=== PATIENT | female | born 1995 | race Caucasian/White ===

== ENCOUNTER 2018-04-11 04:33 | Inpatient (IN) | payer OTHER ==
--- NOTE | 2018-04-11 04:39 | EDPHY ---
H & P Stated Complaint: ETOH withdrawal, n/v, last drink 12hrs ago, hx Time Seen by Provider: 04/11/18 04:39 HPI/ROS: HPI CHIEF COMPLAINT: Alcohol withdraw, nausea, vomiting HISTORY OF PRESENT ILLNESS: 22-year-old female very pleasant, going through alcohol withdrawal. Patient states that she typically drinks 3 L of wine per day. She has done so for the past 3 months. She stopped abruptly yesterday. She now presents emergency room with nausea, vomiting, shakiness, tremors, and tachycardia. Denies any hallucinations. Denies chest pain shortness of breath. She does report she has been vomiting continuously. Past Medical History: Alcoholism Past Surgical History: Gallbladder removal Social History: Daily alcohol use. Typically wine. Family History: Noncontributory ROS REVIEW OF SYSTEMS: 10 Systems were reviewed and negative with the exception of the elements mentioned in the history of present illness. Exam Constitutional triage nursing summary reviewed, vital signs reviewed, awake/ alert. Tachycardic, tremulous Eyes normal conjunctivae and sclera, EOMI, PERRLA. HENT normal inspection, atraumatic, moist mucus membranes, no epistaxis, neck supple/ no meningismus, no raccoon eyes. Respiratory clear to auscultation bilaterally, normal breath sounds, no respiratory distress, no wheezing. Cardiovascular tachycardia, regular rhythm, no murmur, no edema, distal pulses normal. Gastrointestinal soft, non-tender, no rebound, no guarding, normal bowel sounds, no distension, no pulsatile mass. Genitourinary no CVA tenderness. Musculoskeletal no midline vertebral tenderness, full range of motion, no calf swelling, no tenderness of extremities, no meningismus, good pulses, neurovascularly intact. Skin pink, warm, & dry, no rash, skin atraumatic. Neurologic awake, alert and oriented x 3, AAOx3, moves all 4 extremities equally, motor intact, sensory intact, CN II-XII intact, normal cerebellar, normal vision, normal speech. Psychiatric appears anxious, shaking. Heme/Lymph/Immune no lymphadenopathy. Differential Diagnosis: Includes but is not limited to in a particular order alcohol draw, dehydration, electrolyte disturbance, vitamin deficiency, delirium tremens Medical Decision Making: Plan for this patient IV establishment with IV fluid bolus Zofran nausea thiamine and folate, IV Ativan, basic blood work including magnesium, electrolytes, LFTs. Re-evaluate Re-evaluation: 0557: Patient here was significant alcohol withdrawal. She is not hallucinating however it is noted at this time after 4 mg IV Ativan she is still anxious, tachycardic. Having nausea vomiting. The patient is too ill to go home for alcohol draw she will need to be admitted to the hospital. She is on CIWA. She did score initial 22. Plan for hospital admission for alcohol draw. Dehydration, nausea vomiting. Critical Care: Total Critical Care Time Spent Managing this Patient: 65 Minutes. This time was spent Exclusively with this patient. This Care was exclusive of procedures. The Organ System/life at risk was neurological, cardiac This Patient was in Critical Condition because Alcohol withdrawl. Source: Patient - Personal History LMP (Females 10-55): 22-28 Days Ago Current Tetanus Diphtheria and Acellular Pertussis (TDAP): Yes - Medical/Surgical History Hx Asthma: No Hx Chronic Respiratory Disease: No Hx Diabetes: No Hx Cardiac Disease: No Hx Renal Disease: No Hx Cirrhosis: No Hx Alcoholism: Yes Hx HIV/AIDS: No Hx Splenectomy or Spleen Trauma: No Other PMH: JESSE 2011, HAS HAD SEVERE NAUSEA SINCE THAT TIME, HAS HAD UGI,US. ETOH abuse - Social History Smoking Status: Never smoked Constitutional: Initial Vital Signs Temperature (C) 36.7 C 04/11/18 04:34 Heart Rate 116 H 04/11/18 04:34 Respiratory Rate 20 04/11/18 04:34 Blood Pressure 132/101 H 04/11/18 04:34 O2 Sat (%) 96 04/11/18 04:34 O2 Delivery Mode Room Air Allergies/Adverse Reactions: No Known Allergies Allergy (Verified 04/11/18 04:34) Home Medications: Medication Instructions Recorded Escitalopram Oxalate [Lexapro] 20 mg PO HS 04/11/18 Medical Decision Making - Data Points Laboratory Results: Laboratory Results 04/11/18 04:55 04/11/18 04:55 Medications Given: Escitalopram Oxalate (Lexapro) 20 mg PO HS MALA Stop: 10/08/18 20:59 Last Admin: 04/11/18 19:42 Dose: 20 mg Folic Acid (Folic Acid) 1 mg PO DAILY MALA Stop: 10/08/18 08:59 Last Admin: 04/11/18 09:48 Dose: 1 mg Potassium Chloride/Dextrose/Sod Cl (D5w 1/2 Ns W/ 20 Kcl/L) 1,000 mls @ 100 mls /hr IV CONT MALA Stop: 10/08/18 06:14 Last Admin: 04/11/18 18:02 Dose: 1,000 mls Loperamide HCl ( Imodium) 2 mg PO Q6HRS PRN PRN Reason: Diarrhea/Loose Stools Stop: 10/08/18 13:14 Last Admin: 04/11/18 13:46 Dose: 2 mg Lorazepam (Ativan Injection) 0 mg IVP Q1H PRN; Protocol PRN Reason: Alcohol Withdrawal w/IV access Stop: 10/08/18 06:06 Last Admin: 04/11/18 22:38 Dose: 2 mg Multivitamins (Tab-A-Vandana) 1 each PO DAILY MALA Stop: 10/08/18 08:59 Last Admin: 04/11/18 09:48 Dose: 1 each Ondansetron HCl (Zofran) 4 mg IVP Q4HRS PRN PRN Reason: Nausea/Vomiting, Can't Take PO Stop: 10/08/18 06:04 Last Admin: 04/11/18 14:23 Dose: 4 mg Ondansetron HCl (Zofran Odt) 4 mg PO Q4HRS PRN PRN Reason: Nausea/Vomiting, Use 1st Stop: 10/08/18 06:04 Last Admin: 04/11/18 09:58 Dose: 4 mg Promethazine HCl (Phenergan) 6.25 - 12.5 mg IVP Q6HRS PRN PRN Reason: Nausea/Vomiting, Use 2nd Stop: 10/08/18 06:04 Last Admin: 04/11/18 19:40 Dose: 12.5 mg Throat Lozenges (Cepacol Lozenge) 1 ea PO PRN PRN PRN Reason: Sore Throat Stop: 10/08/18 13:04 Last Admin: 04/11/18 13:46 Dose: 1 ea Discontinued Medications Chlordiazepoxide HCl (Librium) 25 mg PO ONCE ONE Stop: 04/11/18 13:51 Last Admin: 04/11/18 15:37 Dose: 25 mg Folic Acid (Folic Acid) 1 mg PO EDNOW ONE Stop: 04/11/18 04:45 Last Admin: 04/11/18 04:56 Dose: 1 mg Sodium Chloride (Ns) 1,000 mls @ 0 mls/hr IV EDNOW ONE; Wide Open PRN Reason: Protocol Stop: 04/11/18 04:45 Last Admin: 04/11/18 04:56 Dose: 1,000 mls Sodium Chloride (Ns) 1,000 mls @ 0 mls/hr IV EDNOW ONE; Wide Open PRN Reason: Protocol Stop: 04/11/18 04:45 Last Admin: 04/11/18 04:56 Dose: 1,000 mls Thiamine HCl 500 mg/ Sodium (Chloride) 105 mls @ 210 mls/hr IV ONCE ONE Stop: 04/11/18 05:13 Last Admin: 04/11/18 05:43 Dose: 105 mls Sodium Chloride (Ns) 1,000 mls @ 0 mls/hr IV ONCE ONE PRN Reason: Wide Open Stop: 04/11/18 06:06 Last Admin: 04/11/18 06:34 Dose: 1,000 mls Lorazepam (Ativan Injection) 2 mg IVP EDNOW ONE Stop: 04/11/18 04:45 Last Admin: 04/11/18 04:50 Dose: 2 mg Lorazepam (Ativan Injection) 0 mg IVP Q1H PRN; Protocol PRN Reason: Alcohol Withdrawal w/IV access Stop: 04/11/18 16:45 Last Admin: 04/11/18 07:58 Dose: 2 mg Ondansetron HCl (Zofran) 4 mg IVP EDNOW ONE Stop: 04/11/18 04:45 Last Admin: 04/11/18 04:55 Dose: 4 mg Departure - Departure Disposition: [facility] Acute Clinical Impression: Alcohol withdrawal Qualifiers: Complication of substance-induced condition: uncomplicated Qualified Code(s): F10.230 - Alcohol dependence with withdrawal, uncomplicated Condition: Critical
[2018-04-11] MEDS ORDERED: NS 1,000 ML IV ONE ×3 (04:44→06:05)
[2018-04-11] MEDS ORDERED: LORazepam 2 MG/ML INJ IVP ONE (04:44)
[2018-04-11] MEDS ORDERED: THIAMINE HCL 500 MG in NS 100 ML IV ONE (04:44)
[2018-04-11] MEDS ORDERED: FOLIC ACID 1 MG TAB PO ONE (04:44)
[2018-04-11] MEDS ORDERED: ONDANSETRON 4 MG/2 ML VIAL IVP ONE (04:44)
[2018-04-11] MEDS ORDERED: LORazepam 1 MG TAB PO PRN (04:45)
[2018-04-11 05:02] LABS: PLATELET COUNT 309 10^3/uL (150-400)
[2018-04-11] MEDS: LORazepam 2 MG/ML INJ IVP PRN ×11 (05:18→22:38)
[2018-04-11] MEDS ORDERED: FLUMAZENIL 0.5 MG/5 ML MDV IVP PRN (06:07)
--- NOTE | 2018-04-11 06:23 | PDGENHP ---
History and Physical - Chief Complaint Alcohol withdrawal - History of Present Illness 22 yo F w/ ETOH use d/o presents with ETOH w/d. The patient has been drinking daily for about a year. She attended a rehab program 1 year ago but only maintained sobriety for about 2 weeks after that. Over the last 3 months her consumption has risen to about 3 L of wine daily. Her last drink was 4 PM on day prior to admission. She wishes to stop drinking so that she can enter another rehab program. She presented to the ED in severe withdrawal with CIWA scores in the 20s. She feels improved currently after 6 mg of Ativan IV but remains tachycardic. She had profuse vomiting prior to arrival. She denies infectious ROS. Case discussed with ED physician Dr. Calle; records reviewed in EMR. History Information - Allergies/Home Medication List Allergies/Adverse Reactions: No Known Allergies Allergy (Verified 04/11/18 04:34) Home Medications: Bcp 04/27/11 [Last Taken 04/27/11] Lamotrigine 09/03/17 [Last Taken Unknown] Ondansetron Odt [Zofran Odt] 09/03/17 [Last Taken Unknown] I have personally reviewed and updated: family history, medical history - Past Medical History no pertinent PMH - Surgical History Reports: no pertinent surgical hx - Family History Positive for: cancer Additional family history: Mother struggles with subtance abuse - Social History Smoking Status: Never smoked Alcohol Use: Heavy (3 L wine daily) Review of Systems Review of Systems: ROS: 10pt was reviewed & negative except for what was stated in HPI & below Physical Exam Physical Exam: Temp Pulse Resp BP Pulse Ox 36.7 C 117 H 20 116/50 L 96 04/11/18 04:34 04/11/18 06:00 04/11/18 06:00 04/11/18 06:00 04/11/18 06:00 Constitutional: appears nourished, uncomfortable Eyes: PERRL, EOMI Ears, Nose, Mouth, Throat: moist mucous membranes, no oral mucosal ulcers Cardiovascular: no murmur, rub, or gallop, tachycardia Respiratory: no respiratory distress, no rales or rhonchi Gastrointestinal: normoactive bowel sounds, soft, non-tender abdomen Skin: warm, normal color Musculoskeletal: full muscle strength, no muscle tenderness Neurologic: AAOx3, CN II-XII Intact, other (+UE tremor, + tongue fasciculations) Psychiatric: interacting appropriately, not anxious Lab Data & Imaging Review 04/11/18 04:55 04/11/18 04:55 WBC 13.48 10^3/uL (3.80-9.50) H 04/11/18 04:55 RBC 4.02 10^6/uL (4.18-5.33) L 04/11/18 04:55 Hgb 14.3 g/dL (12.6-16.3) 04/11/18 04:55 Hct 40.7 % (38.0-47.0) 04/11/18 04:55 MCV 101.2 fL (81.5-99.8) H 04/11/18 04:55 MCH 35.6 pg (27.9-34.1) H 04/11/18 04:55 MCHC 35.1 g/dL (32.4-36.7) 04/11/18 04:55 RDW 13.8 % (11.5-15.2) 04/11/18 04:55 Plt Count 309 10^3/uL (150-400) 04/11/18 04:55 MPV 9.5 fL (8.7-11.7) 04/11/18 04:55 Neut % (Auto) 80.2 % (39.3-74.2) H 04/11/18 04:55 Lymph % (Auto) 13.1 % (15.0-45.0) L 04/11/18 04:55 Baker % (Auto) 6.2 % (4.5-13.0) 04/11/18 04:55 Eos % (Auto) 0.0 % (0.6-7.6) L 04/11/18 04:55 Baso % (Auto) 0.2 % (0.3-1.7) L 04/11/18 04:55 Nucleat RBC Rel Count 0.0 % (0.0-0.2) 04/11/18 04:55 Absolute Neuts (auto) 10.81 10^3/uL (1.70-6.50) H 04/11/18 04:55 Absolute Lymphs (auto) 1.77 10^3/uL (1.00-3.00) 04/11/18 04:55 Absolute Monos (auto) 0.83 10^3/uL (0.30-0.80) H 04/11/18 04:55 Absolute Eos (auto) 0.00 10^3/uL (0.03-0.40) L 04/11/18 04:55 Absolute Basos (auto) 0.03 10^3/uL (0.02-0.10) 04/11/18 04:55 Absolute Nucleated RBC 0.00 10^3/uL (0-0.01) 04/11/18 04:55 Immature Gran % 0.3 % (0.0-1.1) 04/11/18 04:55 Immature Gran # 0.04 10^3/uL (0.00-0.10) 04/11/18 04:55 Sodium 142 mEq/L (135-145) 04/11/18 04:55 Potassium 4.2 mEq/L (3.3-5.0) 04/11/18 04:55 Chloride 100 mEq/L (97-110) 04/11/18 04:55 Carbon Dioxide 15 mEq/l (22-31) L 04/11/18 04:55 Anion Gap 27 mEq/L (6-14) H 04/11/18 04:55 BUN 6 mg/dL (7-23) L 04/11/18 04:55 Creatinine 0.7 mg/dL (0.6-1.0) 04/11/18 04:55 Estimated GFR > 60 04/11/18 04:55 Glucose 135 mg/dL (70-100) H 04/11/18 04:55 Calcium 11.1 mg/dL (8.5-10.4) H 04/11/18 04:55 Phosphorus 3.0 mg/dL (2.5-4.5) 04/11/18 04:55 Magnesium 1.8 mg/dL (1.6-2.3) 04/11/18 04:55 Total Bilirubin 0.8 mg/dL (0.1-1.4) 04/11/18 04:55 Conjugated Bilirubin 0.5 mg/dL (0.0-0.5) 04/11/18 04:55 Unconjugated Bilirubin 0.3 mg/dL (0.0-1.1) 04/11/18 04:55 AST 143 IU/L (14-46) H 04/11/18 04:55 ALT 99 IU/L (9-52) H 04/11/18 04:55 Alkaline Phosphatase 156 IU/L (38-126) H 04/11/18 04:55 Total Protein 9.8 g/dL (6.3-8.2) H 04/11/18 04:55 Albumin 5.9 g/dL (3.5-5.0) H 04/11/18 04:55 Lipase 52 IU/L (23-300) 04/11/18 04:55 Beta HCG, Qual NEGATIVE 04/11/18 04:55 Ethyl Alcohol < 10 mg/dL (0-10) 04/11/18 04:55 Assessment & Plan Assessment: 22 yo F w/ ETOH use d/o presents with ETOH w/d. Plan: 1. ETOH use d/o w/ acute withdrawal - Presents with CIWA scores >20; desires to quit drinking so she can attend rehab program. She drinks 3 L of wine daily; last drink 4 PM on day prior to admission. She feels improved after 6 mg of IV Ativan thus far but remains tachycardic. - Admit to SDU for close monitoring - CIWA protocol ordered - Continue mIVF - Daily MVI, folate, thiamine - CM consult 2. Transaminitis - 2/2 heavy ETOH use. Diet - Regular Code - Full Ppx - Low risk, ambulate TID Dispo - Admit under observation status
[2018-04-11] MEDS: FOLIC ACID 1 MG TAB PO SCH (09:48)
[2018-04-11] MEDS: MULTIVITAMINS 1 EACH TAB PO SCH (09:48)
[2018-04-11] MEDS: ONDANSETRON DISINTEGRATING 4 MG TAB PO PRN (09:58)
[2018-04-11] MEDS ORDERED: CEPACOL LOZENGE PO PRN (13:05)
[2018-04-11] MEDS: LOPERAMIDE HCL 2 MG CAP PO PRN (13:46)
[2018-04-11] MEDS ORDERED: chlordiazePOXIDE 25 MG CAP PO ONE (13:50)
[2018-04-11] MEDS: ONDANSETRON 4 MG/2 ML VIAL IVP PRN (14:23)
[2018-04-11] MEDS: D5W 1/2 NS W/ 20 KCl/L 1,000 ML IV SCH (18:02)
[2018-04-11] MEDS: PROMETHAZINE HCL 25 MG/ML INJ IVP PRN (19:40)
[2018-04-11] MEDS: ESCITALOPRAM OXALATE 10 MG TAB PO SCH (19:42)
[2018-04-12] MEDS: PROMETHAZINE HCL 25 MG/ML INJ IVP PRN (03:10)
[2018-04-12] MEDS: LORazepam 2 MG/ML INJ IVP PRN ×6 (03:10→20:15)
[2018-04-12] MEDS: D5W 1/2 NS W/ 20 KCl/L 1,000 ML IV SCH ×2 (03:56→15:39)
[2018-04-12] MEDS: THIAMINE HCL 100 MG TAB PO SCH (08:07)
[2018-04-12] MEDS: MULTIVITAMINS 1 EACH TAB PO SCH (08:07)
[2018-04-12] MEDS: FOLIC ACID 1 MG TAB PO SCH (08:08)
--- NOTE | 2018-04-12 09:16 | HOSPPROG ---
Hospitalist Progress Note Assessment/Plan: # etOH abuse and withdrawal; MCV 101 - looks well now but has received 20mg ativan in 24 hours - cont SDU monitoring and CIWA today - plans to go to rehab next week # transaminitis - d/t etOH - recheck tomorrow # throat pain - possibly from emesis - will follow PO intake # AGMA - recheck today Subjective: feels about 50% better; c/o throat pain Objective: Vital Signs Temp Pulse Resp BP Pulse Ox 36.7 C 84 19 104/55 L 97 04/12/18 00:00 04/12/18 07:00 04/12/18 07:00 04/12/18 07:00 04/12/18 07:00 04/11/18 04/12/18 04/13/18 05:59 05:59 05:59 Intake Total 3971 Balance 3971 high risk on high dose ativan - Physical Exam Constitutional: no apparent distress, appears nourished Cardiovascular: regular rate and rhythym, no murmur, rub, or gallop Respiratory: no respiratory distress, no rales or rhonchi, clear to auscultation Gastrointestinal: soft, non-tender abdomen, No guarding, No rebound, No distension ICD10 Worksheet Patient Problems: Problems Problem Status Onset Alcohol withdrawal Acute
--- NOTE | 2018-04-12 09:22 | ASMTCASEMG ---
Living Arrangements What is your living Answers: WIth Both Parents/1 Home arrangement? Who do you live with? Type Of Residence What kind of residence do Answers: House you live in? Discharge Plan Comments Coordination Status Comments Notes: Patient is a 22yo single female who has been drinking ETOH daily for the past year. She attended a rehab program approximately 1 year ago but only maintained her sobriety for about 2 weeks. Patient reports her consumption has risen to 3L of wine per day and she wishes to stop drinking. She presented to the ED in severe withdrawal. Patient has been admitted for ETOH acute withdrawal and transaminitis. Patient will most likely need a CAGE and some resources when she is able to participate. CM will follow. Date Signed: 04/12/2018 09:21 AM Electronically Signed By:Traci Delacruz LCSW
[2018-04-12 10:39] LABS: PLATELET COUNT 199 10^3/uL (150-400)
--- NOTE | 2018-04-12 13:10 | PDMN ---
Medical Necessity Medical necessity: [facility] M595 substance related disorders: 2 days: pt present with ETOH W/D CIWA > 20, drinks 3L wine/daily X 1 yr., also with transaminitis, status changed to INPT 04/12 for ongoing monitoring/ further tx CIWA protocol, IVF, IV antiemetics, IV ativan
[2018-04-12] MEDS: ACETAMINOPHEN 325 MG TAB PO PRN (15:42)
[2018-04-12] MEDS: ESCITALOPRAM OXALATE 10 MG TAB PO SCH (20:15)
[2018-04-12] MEDS: LOPERAMIDE HCL 2 MG CAP PO PRN (20:15)
[2018-04-12] MEDS ORDERED: MELATONIN 3 MG TAB PO SCH (21:00)
[2018-04-13] MEDS: LORazepam 2 MG/ML INJ IVP PRN ×4 (00:01→08:30)
[2018-04-13] MEDS: PROMETHAZINE HCL 25 MG/ML INJ IVP PRN (00:02)
[2018-04-13] MEDS: ONDANSETRON 4 MG/2 ML VIAL IVP PRN (04:19)
[2018-04-13] MEDS: D5W 1/2 NS W/ 20 KCl/L 1,000 ML IV SCH (05:06)
[2018-04-13] MEDS: MULTIVITAMINS 1 EACH TAB PO SCH (08:29)
[2018-04-13] MEDS: FOLIC ACID 1 MG TAB PO SCH (08:29)
[2018-04-13] MEDS: THIAMINE HCL 100 MG TAB PO SCH (08:29)
[2018-04-13] MEDS: ACETAMINOPHEN 325 MG TAB PO PRN (08:37)
[2018-04-13] MEDS: ONDANSETRON DISINTEGRATING 4 MG TAB PO PRN (12:00)
[2018-04-13 15:14] VITALS: BP 132/86
--- NOTE | 2018-04-13 15:19 | GDS ---
DISCHARGE DIAGNOSES: 1. Acute alcohol withdrawal. 2. Mild transaminitis. HOSPITAL COURSE: This is a 22-year-old female, who presented to the emergency department in alcohol withdrawal. She had been drinking about 3 L of wine a day for the last year. She received a signifi cant amount of intravenous Ativan with significant improvement in her symptoms over the next 2 days. She still has some mild evidence of withdrawal on discharge. I will give her additional Ativan, #5, in case she feels shaky. She is going to be around her mom and her dad who will be able to watch ov er her for the next 1-2 days. Her plan after this is to go to inpatient rehab. I have also written her a note to excuse her from work until next . BILLING: I spent more than 30 minutes on the day of discharge coordinating care. /[id number]/MODL
--- NOTE | 2018-04-13 16:17 | ASDISCHSUM ---
Discharge Information Plan Status:Home with No Needs Medically Cleared to Leave:04/13/2018 Discharge Date:04/13/2018 03:30 PM CM D/C Disposition:Home, Routine, Self-Care ADT D/C Disposition:Home, Routine, Self-Care Projected Discharge Date:04/13/2018 03:30 PM Transportation at D/C:Family Discharge Delay Reason: Follow-Up Date:04/13/2018 03:30 PM Discharge Slot: Final Diagnosis: Placement Information Patient Contact Information Contact Name:CLEVELAND Relationship:Mother Address:[address] [place] Phone: State/Zip Code:[place] [address] Email: Financial Information Financial Class:HMO and PPO Plans Primary Plan Desc:Arte Manifiesto [employer]TIZ Primary Plan Number:[id number] Secondary Plan Desc: Secondary Plan Number: Assessment Information LACE LACE Length of stay for Answers: 1 day current admission Acuity / Level of Answers: Yes Care: Did the patient have an inpatient admission? # of Emergency department Answers: 1-2 visits in the last 6 months Social determinants Answers: History of substance abuse (ETOH, street drugs, prescription drugs, etc.) Score: 8 Date Signed: 04/13/2018 04:16 PM Electronically Signed By:ESTELLE Serrano [facility] Initial CM Assessment Living Arrangements What is your living Answers: WIth Both Parents/1 Home arrangement? Who do you live with? Type Of Residence What kind of residence do Answers: House you live in? Discharge Plan Comments Coordination Status Comments Notes: Patient is a 22yo single female who has been drinking ETOH daily for the past year. She attended a rehab program approximately 1 year ago but only maintained her sobriety for about 2 weeks. Patient reports her consumption has risen to 3L of wine per day and she wishes to stop drinking. She presented to the ED in severe withdrawal. Patient has been admitted for ETOH acute withdrawal and transaminitis. Patient will most likely need a CAGE and some resources when she is able to participate. CM will follow. Date Signed: 04/12/2018 09:21 AM Electronically Signed By:Traci Delacruz LCSW Case Management Discharge Plan Note Case Management Discharge Discharge Order Complete? Answers: Yes Patient to Obtain Answers: Independently Medications Transportation Arranged Answers: Family/Friends Discharge Comments Notes: Pt is discharging home today. Discussed her plans regarding pursuing treatment and if she would like any resources. She said she was at [facility] for detox a year ago and is planning to admit there next week to their inpatient treatment program. Her father was in contact with them and they will have bed availability. Date Signed: 04/13/2018 04:16 PM Electronically Signed By:ESTELLE Serrano Intervention Information
[2018-04-14] MEDS ORDERED: THIAMINE HCL 100 MG TAB PO SCH (06:07)
== END 2018-04-13 15:30 | disposition home or self-care (01) | DRG 897 ==
LOC: F2N 07:24 → OBSVTOIN 04-12 09:12
PROVIDERS: ADMIT Student in an Organized Health Care Education/Training Program; ATTEND Student in an Organized Health Care Education/Training Program
DX: F10.239 Alcohol dependence with withdrawal, unspecified (principal); E86.9 Volume depletion, unspecified; R74.0 Nonspecific elevation of levels of transaminase and lactic acid dehydrogenase [LDH]
CPT/HCPCS: 96365; G0378; G0480; J2060; J2405; J2550; J3411

== ENCOUNTER 2018-05-27 14:38 | Emergency (ER) | payer OTHER ==
--- NOTE | 2018-05-27 16:03 | EDPHY ---
H & P Stated Complaint: c/o etoh wd sx, n/v/shaking x 2 days Time Seen by Provider: 05/27/18 16:00 HPI/ROS: HPI: This is a 22-year-old female who presents with Chief Complaint: c/o etoh wd sx, n/v/shaking x 2 days Location: GI Quality: Nausea, vomiting Duration: Several hours Signs and Symptoms: no fever, + nausea, + vomiting, no hematemesis, no blood in stool, no abdominal bloating, no diarrhea, no back pain, no urinary symptoms, no vaginal bleeding/discharge, no indigestion, no chest pain, no shortness of breath Timing: Rapid onset, constant Severity: Moderate to severe Context: Pt reports going through detox and has experienced nausea and vomiting since this morning. She reports that she feels extremely anxious and has abdominal cramping. Her last drink was earlier today; approximately 4-5 hours prior to arrival. She normally drinks approximately 2-3 bottles of wine daily for the last several years. She is currently in the process of being admitted through [facility] has remained sober for certain amount of days and received medical clearance. She is currently at her parent's house and they contract for safety and will administer her medications. LMP started 3 days ago and she is currently on her menses. Patient denies any tactile, visual disturbances. She has no history of alcohol withdrawal seizures. Modifying Factors: None Comment: ROS: A comprehensive 10 system review of systems is otherwise negative aside from elements mentioned in the history of present illness. MEDICAL/SURGICAL/SOCIAL HISTORY: Medical history:HAS HAD SEVERE NAUSEA SINCE cholecystectomy 2011, ETOH abuse, depression, irritable bowel syndrome Surgical history: Cholecystectomy 2012 Social history: Never smoked. Alcohol use/abuse. Family history noncontributory. CONSTITUTIONAL: Slightly anxious, polite and cooperative, young adult white female awake and alert, no obvious distress HEENT: Atraumatic and normocephalic, PERRL, EOMI. Nares patent; no rhinorrhea; no nasal mucosal edema. Tympanic membranes clear. Oropharynx clear, no exudate and moist pink mucosa. Airway patent. No lymphadenopathy. No meningismus. Cardiovascular: Normal S1/S2, tachycardia, regular rhythm, without murmur rub or gallop. PULMONARY/CHEST: Symmetrical and nontender. Clear to auscultation bilaterally. Good air movement. No accessory muscle usage. ABDOMEN: Soft, nondistended, nontender, no rebound, no guarding, no peritoneal signs, no masses or organomegaly. No CVAT. EXTREMITIES: 2/2 pulses, strength 5/5, no deformities, no clubbing, no cyanosis or edema. NEUROLOGICAL: no focal neuro deficits. GCS 15. SKIN: Warm and dry, no erythema. no rash. Good capillary refill. Source: Patient Exam Limitations: No limitations - Medical/Surgical History Hx Asthma: No Hx Chronic Respiratory Disease: No Hx Diabetes: No Hx Cardiac Disease: No Hx Renal Disease: No Hx Cirrhosis: No Hx Alcoholism: Yes Hx HIV/AIDS: No Hx Splenectomy or Spleen Trauma: No Other PMH: JESSE 2011, HAS HAD SEVERE NAUSEA SINCE THAT TIME, cholecystectomy, ETOH abuse, depression - Social History Smoking Status: Never smoked Constitutional: Initial Vital Signs Temperature (C) 36.6 C 05/27/18 14:59 Heart Rate 103 H 05/27/18 14:59 Respiratory Rate 20 05/27/18 14:59 Blood Pressure 132/88 H 05/27/18 14:59 O2 Sat (%) 97 05/27/18 14:59 O2 Delivery Mode Room Air Allergies/Adverse Reactions: No Known Allergies Allergy (Verified 05/27/18 15:02) Home Medications: Medication Instructions Recorded Escitalopram Oxalate [Lexapro] 20 mg PO HS 04/11/18 Clorazepate Dipotassium 05/27/18 Promethazine HCl [Phenergan 25mg 25 mg PO Q6 PRN #10 tab 05/27/18 (*)] Seroquel 05/27/18 Zofran 05/27/18 Medical Decision Making - Diagnostics Imaging Results: Imaging Impressions Abdomen Ultrasound 05/27/18 17:07 Impression: 1. Borderline hepatomegaly with mild hepatic steatosis suspected. 2. Probable small 1.2 cm hemangioma right lobe liver inferiorly. Consider follow -up ultrasound in 12 months to confirm stability. ED Course/Re-evaluation: Vital signs reviewed and show mild tachycardia upon arrival. CIWA=10 upon arrival IV access and laboratory studies ordered Given 1 L normal saline, IV promethazine 12.5 mg and Ativan per alcohol withdrawal protocol. Patient also given 50 mg of Librium Parents will contract for safety and I will give Librium prepack for them to administer. 1638: Labs reviewed. WBC 10 K with left shift, MCV 100 which supports alcoholism, lipase 56, LFTs elevated; hepatitis panel sent and abdominal ultrasound ordered Case management consult. Patricia spoke with the patient's family who again reports that patient will be going to the house and they will administer the Librium to her. 1715: repeat CIWA=1 Abdominal US shows: 1. Borderline hepatomegaly with mild hepatic steatosis suspected. 2. Probable small 1.2 cm hemangioma right lobe liver inferiorly. Consider follow -up ultrasound in 12 months to confirm stability. Patient is discharged with prepack and prescription for promethazine and Librium to the care of her parents. Unable to give Zofran due to interaction with home psychiatric medications. This patient was seen under the supervision of my secondary supervising physician. I evaluated care for this patient independently. Discussed this patient with Dr. Leslie who did not see the patient. Differential Diagnosis: Differential diagnosis includes but is not limited to alcohol withdrawal, gastroenteritis, alcoholic gastritis, delirium tremens, alcohol withdrawal seizures. - Data Points Laboratory Results: Laboratory Results 05/27/18 16:20 05/27/18 16:20 05/27/18 05/27/18 05/27/18 17:06 16:20 16:20 WBC RBC Hgb Hct MCV MCH MCHC RDW Plt Count MPV Neut % (Auto) Lymph % (Auto) [place] % (Auto) Eos % (Auto) Baso % (Auto) Nucleat RBC Rel Count Absolute Neuts (auto) Absolute Lymphs (auto) Absolute Monos (auto) Absolute Eos (auto) Absolute Basos (auto) Absolute Nucleated RBC Immature Gran % Immature Gran # Sodium 135 mEq/L mEq/L (135-145) Potassium 3.9 mEq/L mEq/L (3.3-5.0) Chloride 95 mEq/L L mEq/L (97-110) Carbon Dioxide 21 mEq/l L mEq/l (22-31) Anion Gap 19 mEq/L H mEq/L (6-14) BUN 9 mg/dL mg/dL (7-23) Creatinine 0.8 mg/dL mg/dL (0.6-1.0) Estimated GFR > 60 Glucose 93 mg/dL mg/dL (70-100) Calcium 10.1 mg/dL mg/dL (8.5-10.4) Total Bilirubin 1.2 mg/dL mg/dL (0.1-1.4) Conjugated Bilirubin 0.5 mg/dL mg/dL (0.0-0.5) Unconjugated Bilirubin 0.7 mg/dL mg/dL (0.0-1.1) AST 520 IU/L H IU/L (14-46) ALT 326 IU/L H IU/L (9-52) Alkaline Phosphatase 299 IU/L H IU/L (38-126) Total Protein 8.8 g/dL H g/dL (6.3-8.2) Albumin 5.4 g/dL H g/dL (3.5-5.0) Lipase 56 IU/L IU/L (23-300) Beta HCG, Qual NEGATIVE Hepatitis A IgM Ab NEGATIVE (NEGATIVE) Hep Bs Antigen NEGATIVE (NEGATIVE) Hep B Core IgM Ab NEGATIVE (NEGATIVE) Hepatitis C Antibody NEGATIVE (NEGATIVE) 05/27/18 16:20 WBC 10.62 10^3/uL H 10^3/uL (3.80-9.50) RBC 4.01 10^6/uL L 10^6/uL (4.18-5.33) Hgb 14.0 g/dL g/dL (12.6-16.3) Hct 40.4 % % (38.0-47.0) MCV 100.7 fL H fL (81.5-99.8) MCH 34.9 pg H pg (27.9-34.1) MCHC 34.7 g/dL g/dL (32.4-36.7) RDW 14.0 % % (11.5-15.2) Plt Count 323 10^3/uL 10^3/uL (150-400) MPV 9.5 fL fL (8.7-11.7) Neut % (Auto) 86.1 % H % (39.3-74.2) Lymph % (Auto) 9.1 % L % (15.0-45.0) [place] % (Auto) 3.8 % L % (4.5-13.0) Eos % (Auto) 0.0 % L % (0.6-7.6) Baso % (Auto) 0.4 % % (0.3-1.7) Nucleat RBC Rel Count 0.0 % % (0.0-0.2) Absolute Neuts (auto) 9.15 10^3/uL H 10^3/uL (1.70-6.50) Absolute Lymphs (auto) 0.97 10^3/uL L 10^3/uL (1.00-3.00) Absolute Monos (auto) 0.40 10^3/uL 10^3/uL (0.30-0.80) Absolute Eos (auto) 0.00 10^3/uL L 10^3/uL (0.03-0.40) Absolute Basos (auto) 0.04 10^3/uL 10^3/uL (0.02-0.10) Absolute Nucleated RBC 0.00 10^3/uL 10^3/uL (0-0.01) Immature Gran % 0.6 % % (0.0-1.1) Immature Gran # 0.06 10^3/uL 10^3/uL (0.00-0.10) Sodium Potassium Chloride Carbon Dioxide Anion Gap BUN Creatinine Estimated GFR Glucose Calcium Total Bilirubin Conjugated Bilirubin Unconjugated Bilirubin AST ALT Alkaline Phosphatase Total Protein Albumin Lipase Beta HCG, Qual Hepatitis A IgM Ab Hep Bs Antigen Hep B Core IgM Ab Hepatitis C Antibody Medications Given: Discontinued Medications Chlordiazepoxide (Librium 25 Mg Prepack#6) 1 btl TAKEHOME EDNOW ONE Stop: 05/27/18 17:53 Last Admin: 05/27/18 18:23 Dose: 1 btl Chlordiazepoxide HCl (Librium) 50 mg PO EDNOW ONE Stop: 05/27/18 16:12 Last Admin: 05/27/18 16:28 Dose: 50 mg Sodium Chloride (Ns) 1,000 mls @ 0 mls/hr IV EDNOW ONE; Wide Open PRN Reason: Protocol Stop: 05/27/18 16:11 Last Admin: 05/27/18 16:26 Dose: 1,000 mls Lorazepam (Ativan Injection) 0 mg IVP Q1H PRN; Protocol PRN Reason: Alcohol Withdrawal w/IV access Stop: 05/28/18 04:11 Last Admin: 05/27/18 16:27 Dose: 2 mg Promethazine HCl (Phenergan) 12.5 mg IVP EDNOW ONE Stop: 05/27/18 16:11 Last Admin: 05/27/18 16:25 Dose: 12.5 mg Promethazine HCl (Phenergan 25 Mg Prepack #4) 1 btl JUANIS HICKEYNOW ONE Stop: 05/27/18 17:53 Last Admin: 05/27/18 18:24 Dose: 1 btl Departure - Departure Disposition: Home, Routine, Self-Care Clinical Impression: Alcohol withdrawal syndrome without complication, Alcohol abuse, Hepatic steatosis, LFT elevation Condition: Good Instructions: Chlordiazepoxide (By mouth), Promethazine (By mouth), Alcohol Withdrawal (ED) Additional Instructions: Ultrasound today shows small 1.2 cm hemangioma right lobe liver inferiorly. Consider follow-up ultrasound in 12 months to confirm stability. Please refrain from drinking alcohol excessively. Take Librium every 4-6 hours as needed for alcohol withdrawal symptoms. Take promethazine every 4-6 hours as needed for nausea, vomiting. Continue intake process for alcohol detox and rehab at [facility]. Referrals: [facility] [Outside] - As per Instructions Prescriptions: Promethazine HCl [Phenergan 25mg (*)] 25 mg PO Q6 PRN #10 tab PRN Reason: Nausea/Vomiting, Use 1st
[2018-05-27] MEDS ORDERED: PROMETHAZINE HCL 25 MG/ML INJ IVP ONE (16:10)
[2018-05-27] MEDS ORDERED: NS 1,000 ML IV ONE (16:10)
[2018-05-27] MEDS ORDERED: chlordiazePOXIDE 25 MG CAP PO ONE (16:11)
[2018-05-27] MEDS ORDERED: LORazepam 2 MG/ML INJ IVP PRN (16:11)
[2018-05-27] MEDS ORDERED: LORazepam 1 MG TAB PO PRN (16:11)
[2018-05-27 16:32] LABS: PLATELET COUNT 323 10^3/uL (150-400)
[2018-05-27] MEDS ORDERED: PROMETHAZINE 25 MG PREPACK #4 BTL TAKEHOME ONE (17:52)
[2018-05-27] MEDS ORDERED: CHLORDIAZEPOXIDE 25MG PREPK#6 BTL TAKEHOME ONE (17:52)
[2018-05-27 18:28] VITALS: BP 108/53
[2018-05-27 19:46] LABS: HEPATITIS B SURFACE ANTIGEN NEGATIVE (NEGATIVE)
[2018-05-27 19:52] LABS: HEPATITIS A ANTIBODY IGM (BCH) NEGATIVE (NEGATIVE); HEPATITIS B CORE AB IGM NEGATIVE (NEGATIVE)
[2018-05-27 20:03] LABS: HEPATITIS C ANTIBODY TOTAL NEGATIVE (NEGATIVE)
== END 2018-05-27 18:48 | disposition home or self-care (01) ==
DX: F10.230 Alcohol dependence with withdrawal, uncomplicated (principal); E86.9 Volume depletion, unspecified; R94.5 Abnormal results of liver function studies; K76.9 Liver disease, unspecified; F32.9 Major depressive disorder, single episode, unspecified
CPT/HCPCS: 96374; G0472; J2060; J2550

== ENCOUNTER 2018-11-23 11:28 | Emergency (ER) | payer OTHER | END 2018-11-23 14:38 | disposition home or self-care (01) ==